=== PATIENT | male | born 1940 | race Caucasian/White ===

== ENCOUNTER 2017-03-08 11:09 | Emergency (ER) | payer MEDICARE ==
[~2017-03-08] VITALS: Ht 188 cm; Wt 93.0 kg
[~2017-03-08 11:09] MED LIST: AMLO5TAB96 PO; ASPI325T PO; ATOR10 PO; DIAZ5 PO; FLUO-1 PO; avadart
[2017-03-08 11:14] VITALS: BP 129/73; PULSE 106; RESP 16; TEMP 97.8; O2SAT 95
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
[2017-03-08] MEDS ORDERED: MULT1TAB46 PO (11:34)
[2017-03-08] MEDS ORDERED: DIAZ5TAB PO (11:34)
[2017-03-08] MEDS ORDERED: ASPI81CH6 CHEW (11:34)
[2017-03-08] MEDS ORDERED: AREDS PO (11:34)
--- NOTE | 2017-03-08 11:38 | RADRPT ---
EXAM DATE/TIME: 03/08/2017 11:23 [facility] COMPARISON: No previous studies available for comparison. INDICATIONS : Right hand second digit pain after landing on right hand. MEDICAL HISTORY : Hypercholesterolemia. Hypertension Benign testicular tumor. SURGICAL HISTORY : TURP. ENCOUNTER: Initial ACUITY: 1 day PAIN SCORE: 0/10 LOCATION: Right hand ssecond digit. FINDINGS: Ulnar dorsal dislocation at the second PIP joint. There is likely a small avulsion fracture along the proximal palmar region of the middle phalanx. Soft tissue swelling noted in the second digit. CONCLUSION: 1. Ulnar dorsal dislocation at the second PIP joint with small evulsion fracture along the proximal p almar region of the middle phalanx. Ousmane Owen MD on March 08, 2017 at 11:33 Board Certified Radiologist. This report was verified electronically.
--- NOTE | 2017-03-08 12:43 | RADRPT ---
EXAM DATE/TIME: 03/08/2017 12:14 [facility] COMPARISON: FINGER RIGHT 2ND DIGIT ([id number]), March 08, 2017, 11:23. INDICATIONS : Post reduction of right second digit. MEDICAL HISTORY : Hypercholesterolemia. Hypertension Benign testicular tumor. SURGICAL HISTORY : TURP. ENCOUNTER: Subsequent ACUITY: 1 day PAIN SCORE: 0/10 LOCATION: Right hand second digit. FINDINGS: Examination of the second digit of the right hand demonstrates interval reduction of the previously d escribed PIP dislocation. There is anatomic alignment. Small osseous fragment noted along the dorsum of the proximal middle phalanx is not demonstrated. No additional fractures identified. CONCLUSION: 1. Near-anatomic alignment following reduction of second PIP dislocation. 2. Small osseous fragment noted along the dorsum of the proximal second middle phalanx is no longer v isualized. Otherwise, no acute fracture. Ousmane Owen MD on March 08, 2017 at 12:38 Board Certified Radiologist. This report was verified electronically.
[2017-03-10] MEDS ORDERED: FLUO-1 PO (10:49)
[2017-03-10] MEDS ORDERED: AVOD0.5C PO (10:49)
[2017-03-10] MEDS ORDERED: AMLO5 PO (10:49)
[2017-03-10] MEDS ORDERED: LIPI10TA PO (10:49)
[2017-03-10] MEDS ORDERED: OCUVTAB4 PO (10:49)
== END 2017-03-08 12:31 | disposition home or self-care (01) ==
LOC: PHEFT 11:09
DX: S63.280A Dislocation of proximal interphalangeal joint of right index finger, initial encounter (principal); F41.9 Anxiety disorder, unspecified; F32.9 Major depressive disorder, single episode, unspecified; E78.00 Pure hypercholesterolemia, unspecified; I10 Essential (primary) hypertension; V18.4XXA Pedal cycle driver injured in noncollision transport accident in traffic accident, initial encounter; Z79.82 Long term (current) use of aspirin; Z79.899 Other long term (current) drug therapy; Z88.5 Allergy status to narcotic agent
CPT/HCPCS: 26770; 73140

== ENCOUNTER 2018-03-19 04:23 | Observation (INO) ==
--- NOTE | 2018-03-19 05:16 | ED ---
HPI General Chief Complaint: Seizure Stated Complaint: Poss seizures Time Seen by Provider: 03/19/18 05:06 Related Data Home Medications Medication Instructions Recorded Confirmed aflibercept 2 mg INTRAVITREAL Q8W 03/19/18 03/19/18 amlodipine 5 mg PO DAILY 03/19/18 03/19/18 aspirin [Aspir-81] 81 mg PO DAILY 03/19/18 03/19/18 atorvastatin 10 mg PO DAILY 03/19/18 03/19/18 diazepam 5 mg PO DAILY 03/19/18 03/19/18 dutasteride 0.5 mg PO DAILY 03/19/18 03/19/18 fluoxetine 10 mg PO HS 03/19/18 03/19/18 fluoxetine 40 mg PO DAILY 03/19/18 03/19/18 lutein 6 mg PO DAILY 03/19/18 03/19/18 magnesium 250 mg PO DAILY 03/19/18 03/19/18 multivitamin 1 cap PO QAM 03/19/18 03/19/18 Allergies Allergy/AdvReac Type Severity Reaction Status Date / Time codeine AdvReac Severe HEADACHE/NAUSEA Verified 03/19/18 04:25 AND VOMITING PMFSH Medical History Medical History Anxiety (Acute) BPH (benign prostatic hyperplasia) (Acute) Depression (Acute) HTN (hypertension) (Acute) Hypercholesteremia (Acute) Macular degeneration (Acute) Surgical History Surgical History H/O transurethral resection of prostate (Acute) History of eye surgery (Acute) History of testicular surgery (Acute) Social History Social History Substance History: No History of Abuse Second Hand Smoke Exposure: No Smoking Status: Never smoker How Often Do You Have a Drink Containing Alcohol: Monthly or less Recent Travel in [facility] within the Last 8 Weeks: No Recent Out of Country Travel within the Last 8 Weeks: No Immunization History Tetanus Immunization: <5 Years Course Initial Documented Vital Signs Temperature 97.7 F 03/19/18 04:25 Pulse Rate 90 03/19/18 04:25 Respiratory Rate 20 03/19/18 04:25 Blood Pressure 196/97 H 03/19/18 04:25 Pulse Oximetry 98 03/19/18 04:25 Last Documented Vital Signs Temperature 97.7 F 03/19/18 04:25 Pulse Rate 68 03/19/18 12:27 Respiratory Rate 18 03/19/18 12:27 Blood Pressure 158/83 H 03/19/18 12:27 Pulse Oximetry 96 03/19/18 12:27 Sign Out Sign Out Data: Patient Sign Out occurred on 03/19/18 at 06:14. Patient's care was discussed, and care was transferred from Anny Polanco MD to Akira Marin MD. Sign Out Comment: recently seen in the emergency department 03/17/18 diagnosed with anxiety however symptoms seem to be escalatingPatient with known anxiety depression recent adjustment of his medications now having episodes of tremor and muscle spasm and with taking increasing doses of Valium symptoms have not been resolving CT brain noncontrast ordered along with basic labs as well as CK to evaluate for rhabdomyolysis dehydration. Last updated by Anny Polanco MD at 03/19/18 05:54 Post-Handoff Eval: The patient is a 77-year-old male who was initially evaluated by the previous physician, Dr. Polanco. The patient has been on Prozac 40 mg continuously for several years, recently was increased to Prozac 40 mg in the morning and 10 mg at night. The patient was then tapered off of the Valium, however, had increasing symptoms of insomnia, restlessness, tremors, and anxiety. The patient was evaluated in the emergency department several days ago and was placed back on the Valium, 2.5 mg daily. The patient stated his symptoms progressed and he called his psychiatrist, Dr. Bernal, who referred him to the emergency department. The patient is followed by his primary physician, Dr. Leavitt, and his neurologist, Dr. Grant. The patient notes increasing fasciculations and tremors the lower extremities. On physical examination the patient was noted to be hyperreflexic in the lower extremities with obvious muscle fasciculations. The patient states he has had a previous MRI of the cervical spine, thoracic spine, and lumbar spine which revealed degenerative changes but no other significant disease. He is also had previous nerve conduction velocity test and EMG of the lower extremities for peripheral neuropathy. However, the fasciculations and hyperreflexia are new. The patient is afebrile, but does have an elevated blood pressure, CPK was normal. Differential diagnosis includes neuroleptic malignant syndrome versus other underlying neurologic disorder. Therefore, the patient will be admitted for neurology evaluation. The patient's primary physician is Dr. Leavitt, therefore , [facility] I discussed the patient with Dr. Caputo who agrees with admission. I discussed the patient with Dr. Simons, the patient's psychiatrist. He would like a call from the neurologist to evaluate the patient if possible. He also recommends continuing the Valium but hold the Prozac. Medical Decision Making MDM Narrative Medical Screen Exam Complete: Yes Emergency Medical Condition: Yes Lab Data Result diagrams: 03/19/18 05:30 03/19/18 05:30 Lab Results 03/19/18 03/19/18 03/19/18 Range/Units 05:30 05:30 05:30 WBC 6.1 (4.0-11.0) th/mm3 RBC 4.79 (4.50-5.90) mil/mm3 Hgb 15.2 (13.0-17.0) gm/dL Hct 44.2 (39.0-51.0) % MCV 92.1 (80.0-100.0) fL MCH 31.8 (27.0-34.0) pg MCHC 34.5 (32.0-36.0) % RDW 13.4 (11.6-17.2) % Plt Count 212 (150-450) th/mm3 MPV 7.9 (7.0-11.0) fL Neut % (Auto) 67.4 (16.0-70.0) % Lymph % (Auto) 25.1 (9.0-44.0) % Hyde % (Auto) 6.5 (0.0-8.0) % Eos % (Auto) 0.4 (0.0-4.0) % Baso % (Auto) 0.6 (0.0-2.0) % Neut # (Auto) 4.1 (1.8-7.7) th/mm3 Lymph # (Auto) 1.5 (1.0-4.8) th/mm3 Hyde # (Auto) 0.4 (0.0-0.9) th/mm3 Eos # (Auto) 0.0 (0.0-0.4) th/mm3 Baso # (Auto) 0.0 (0.0-0.2) th/mm3 WBC Differential . Differential Comment Auto diff final Sodium 140 (136-145) meq/L Potassium 3.6 (3.5-5.1) meq/L Chloride 102 (98-107) meq/L Carbon Dioxide 29.8 (21.0-32.0) meq/L Anion Gap 8 (5-15) meq/L BUN 15 (7-18) mg/dL Creatinine 1.14 (0.60-1.30) mg/dL Estimated GFR 62 L (>89) mL/min Random Glucose 107 H (74-106) mg/dL Calcium 9.2 (8.5-10.1) mg/dL Magnesium 2.4 (1.5-2.5) mg/dL Total Bilirubin 0.8 (0.2-1.0) mg/dL AST 20 (15-37) U/L ALT 25 (12-78) U/L Alkaline Phosphatase 61 (45-117) U/L Total Creatine Kinase 205 (39-308) U/L CK-MB (CK-2) 2.7 (0.5-3.6) ng/mL Troponin I Less than 0.02 L (0.02-0.05) ng/mL Total Protein 7.6 (6.4-8.2) g/dL Albumin 4.1 (3.4-5.0) g/dL TSH (0.358-3.740) uIU/mL Free T4 (0.76-1.46) ng/dL Free T3 (2.18-3.98) pg/mL 03/19/18 Range/Units 05:30 WBC (4.0-11.0) th/mm3 RBC (4.50-5.90) mil/mm3 Hgb (13.0-17.0) gm/dL Hct (39.0-51.0) % MCV (80.0-100.0) fL MCH (27.0-34.0) pg MCHC (32.0-36.0) % RDW (11.6-17.2) % Plt Count (150-450) th/mm3 MPV (7.0-11.0) fL Neut % (Auto) (16.0-70.0) % Lymph % (Auto) (9.0-44.0) % Hyde % (Auto) (0.0-8.0) % Eos % (Auto) (0.0-4.0) % Baso % (Auto) (0.0-2.0) % Neut # (Auto) (1.8-7.7) th/mm3 Lymph # (Auto) (1.0-4.8) th/mm3 Hyde # (Auto) (0.0-0.9) th/mm3 Eos # (Auto) (0.0-0.4) th/mm3 Baso # (Auto) (0.0-0.2) th/mm3 WBC Differential Differential Comment Sodium (136-145) meq/L Potassium (3.5-5.1) meq/L Chloride (98-107) meq/L Carbon Dioxide (21.0-32.0) meq/L Anion Gap (5-15) meq/L BUN (7-18) mg/dL Creatinine (0.60-1.30) mg/dL Estimated GFR (>89) mL/min Random Glucose (74-106) mg/dL Calcium (8.5-10.1) mg/dL Magnesium (1.5-2.5) mg/dL Total Bilirubin (0.2-1.0) mg/dL AST (15-37) U/L ALT (12-78) U/L Alkaline Phosphatase (45-117) U/L Total Creatine Kinase (39-308) U/L CK-MB (CK-2) (0.5-3.6) ng/mL Troponin I (0.02-0.05) ng/mL Total Protein (6.4-8.2) g/dL Albumin (3.4-5.0) g/dL TSH 2.110 (0.358-3.740) uIU/mL Free T4 1.55 H (0.76-1.46) ng/dL Free T3 3.30 (2.18-3.98) pg/mL Imaging Data Radiologist's impression: Head CT 03/19/18 05:06 CONCLUSION: No acute intracranial abnormality is seen. . Discharge Plan Discharge Disposition Patient Disposition: ED Admit(ED Internal Use Only) Discharge Condition Condition: Stable Discharge Order Discharge Orders: ED Use Only Admit Order (Routine); Ordered 03/19/18 Ordered By: Akira Marin Discharge Details Diagnosis: Fasciculations, Hyperreflexia Physicians Team ED Provider: Akira Marin Primary Care Provider: UNKNOWN, Attending Provider: Mame Caputo Other Providers: [facility],Insurance ; Gilson Dias Status ED Status: Admitted Observation Patient
--- NOTE | 2018-03-19 05:28 | CT ---
EXAM DATE: 03/19/2018 5:24 AM EST AGE/SEX: 77 years / Male INDICATIONS: Altered Mental Status, Headaches, Tremors CLINICAL DATA: This is the patient's initial encounter. Patient reports that signs and symptoms have been present for 1 day and indicates a pain score of 10/10. MEDICAL/SURGICAL HISTORY: Hypertension. None. RADIATION DOSE: 56.39 CTDI (mGy) COMPARISON: No prior exams available for comparison. TECHNIQUE: CT of the head without contrast. Using automated exposure control and adjustment of the mA and/or kV according to patient size, radiation dose was kept as low as reasonably achievable to ob tain optimal diagnostic quality images. DICOM format image data is available electronically for revi ew and comparison. FINDINGS: Cerebrum: The ventricles are normal for age. No evidence of midline shift, mass lesion, hemorrhage or acute infarction. No extraaxial fluid collections are seen. Posterior Fossa: The cerebellum and brainstem are intact. The 4th ventricle is midline. The cerebe llopontine angle is unremarkable. Extracranial: The visualized portion of the orbits is intact. Skull: The calvaria is intact. No evidence of skull fracture. There is chronic appearing sclerosis at the inferior left mastoid bone. CONCLUSION: No acute intracranial abnormality is seen. . Electronically signed by: Shailesh Coyne MD Board Certified Radiologist 03/19/2018 5:26 AM EST
[2018-03-19] MEDS: Sod Chloride 0.9% Inj 1,000 ML IV.CONT SCH ×3 (05:45→17:38)
[2018-03-19 06:22] LABS: Baso % (Auto) 0.6 % (0.0-2.0); Eos % (Auto) 0.4 % (0.0-4.0); Hematocrit 44.2 % (39.0-51.0); Hemoglobin 15.2 gm/dL (13.0-17.0); Lymph # (Auto) 1.5 th/mm3 (1.0-4.8); Lymph % (Auto) 25.1 % (9.0-44.0); Mean Corpuscular HGB Conc 34.5 % (32.0-36.0); Mean Corpuscular Hemoglobin 31.8 pg (27.0-34.0); Mean Corpuscular Volume 92.1 fL (80.0-100.0); Mean Platelet Volume 7.9 fL (7.0-11.0); Mono # (Auto) 0.4 th/mm3 (0.0-0.9); Mono % (Auto) 6.5 % (0.0-8.0); Neut # (Auto) 4.1 th/mm3 (1.8-7.7); Neut % (Auto) 67.4 % (16.0-70.0); Platelet Count 212 th/mm3 (150-450); Red Blood Count 4.79 mil/mm3 (4.50-5.90); Red Cell Distribution Width 13.4 % (11.6-17.2); White Blood Count 6.1 th/mm3 (4.0-11.0)
[2018-03-19 06:34] LABS: Alanine Aminotransferase 25 U/L (12-78); Albumin 4.1 g/dL (3.4-5.0); Anion Gap 8 meq/L (5-15); Aspartate Aminotransferase 20 U/L (15-37); Blood Urea Nitrogen 15 mg/dL (7-18); Calcium 9.2 mg/dL (8.5-10.1); Carbon Dioxide 29.8 meq/L (21.0-32.0); Chloride 102 meq/L (98-107); Glomerular Filtration Rate 62 mL/min (>89); Glucose,Random 107 mg/dL (74-106); Magnesium 2.4 mg/dL (1.5-2.5); Potassium 3.6 meq/L (3.5-5.1); Sodium 140 meq/L (136-145)
[2018-03-19 06:36] LABS: Alkaline Phosphatase 61 U/L (45-117); Creatine Kinase 205 U/L (39-308); Total Protein 7.6 g/dL (6.4-8.2)
[2018-03-19 06:56] LABS: Creatine Kinase MB 2.7 ng/mL (0.5-3.6)
[2018-03-19] MEDS ORDERED: amLODIPine 5 MG Tablet PO ONE ×2 (06:59→12:10)
[2018-03-19 07:19] LABS: Free T4 (Free Thyroxine) 1.55 ng/dL (0.76-1.46); Thyroid Stimulating Hormone 2.11 uIU/mL (0.358-3.740); Triiodothyronine (T3) Free 3.3 pg/mL (2.18-3.98)
--- NOTE | 2018-03-19 09:36 | ECG ---
Date Performed: 03/19/2018 Time Performed: 05:38:01 PTAGE: 77 years EKG: Sinus rhythm BORDERLINE LEFT AXIS DEVIATION NONSPECIFIC T-WAVE ABNORMALITY BORDERLINE ECG INTERPRETATION BASED ON A DEFAULT AGE OF 40 YEARS NO PREVIOUS TRACING DOCTOR: Arturo Mello Interpretating Date/Time 03/19/2018 09:36:05
--- NOTE | 2018-03-19 11:52 | P.HPIM ---
History of Present Illness Primary Care Physician: UNKNOWN History of Present Illness: This patient is a 77 y/o male with a Dx of anxiety and depression for 10 yrs. He also has htn. The patient follows up with his primary care doctor and neurologist Dr. Grant. Patient presents to the ED with tremors and hyper reflexia primarily in his lower extremities. He says the symptoms have been getting worse over the past few days and he was seen in [place] for similar symptoms on the Feb. He denies any bladder or bowel incontinence but says he has a sensation of tingling occasionally in his legs that moves towards his genitals. He has not been able to sleep because of persistent symptoms. His symptoms were severe this morning so he came into the ED for evaluation. He denies any fever or chills. No chest pain, no sob. No other complaints. Fam hx Parkinsons in his mother Review of Systems All other systems reviewed negative except as stated in HPI [facility] - History History Provided By: Patient, Significant Other - Medical History Medical History: Medical History (Last Updated 03/19/18 @ 04:31 by Yojana Haro) Anxiety BPH (benign prostatic hyperplasia) Depression HTN (hypertension) Hypercholesteremia Macular degeneration - Surgical History Surgical History: Surgical History (Last Updated 03/19/18 @ 04:31 by Yojana Haro) H/O transurethral resection of prostate History of eye surgery History of testicular surgery - Tobacco History Second Hand Smoke Exposure: No Tobacco Use In Past 30 Days: No Smoking Status: Never smoker - Alcohol History How Often Do You Have a Drink Containing Alcohol: Monthly or less - Substance Use History Substance History: No History of Abuse - Travel History Recent Travel in the [facility] Within the Last 8 Weeks: No Recent Travel Out of the Country Within the Last 8 Weeks: No - Immunization History Tetanus Immunization: <5 Years Medications and Allergies Active Medications: Active Medications Amlodipine Besylate (Norvasc) 5 mg PO DAILY [facility] Amlodipine Besylate (Norvasc) 5 mg PO ONCE ONE Stop: 03/19/18 11:40 Aspirin (Aspirin Chew) 81 mg PO DAILY [facility] Atorvastatin Calcium (Lipitor) 10 mg PO HS [facility] Diazepam (Valium) 5 mg PO DAILY [facility] Fluoxetine HCl (Prozac) 40 mg PO HS [facility] Sodium Chloride (Ns Inj) 1,000 mls @ 100 mls/hr IV.CONT .Q10H [facility] Last Admin: 03/19/18 05:45 Dose: 100 mls/hr Multivitamins (Theragran) 1 tab PO DAILY [facility] Sodium Chloride (Ns Flush) 2 ml IV.FLUSH PRN PRN PRN Reason: FLUSH AFTER USING IV ACCESS Allergies Allergy/AdvReac Type Severity Reaction Status Date / Time codeine AdvReac Severe HEADACHE/NAUSEA Verified 03/19/18 04:25 AND VOMITING Home Medications Medication Instructions Recorded Confirmed Type aflibercept 2 mg INTRAVITREAL Q8W 03/19/18 03/19/18 History amlodipine 5 mg PO DAILY 03/19/18 03/19/18 History aspirin [Aspir-81] 81 mg PO DAILY 03/19/18 03/19/18 History atorvastatin 10 mg PO DAILY 03/19/18 03/19/18 History diazepam 5 mg PO DAILY 03/19/18 03/19/18 History dutasteride 0.5 mg PO DAILY 03/19/18 03/19/18 History fluoxetine 10 mg PO HS 03/19/18 03/19/18 History fluoxetine 40 mg PO DAILY 03/19/18 03/19/18 History lutein 6 mg PO DAILY 03/19/18 03/19/18 History magnesium 250 mg PO DAILY 03/19/18 03/19/18 History multivitamin 1 cap PO QAM 03/19/18 03/19/18 History Exam Vital signs: Vital Signs 03/19/18 04:25 03/19/18 05:50 03/19/18 07:29 Temperature 97.7 F Pulse Rate 90 69 74 Respiratory Rate 20 17 Blood Pressure 196/97 H 188/84 H 192/92 H Pulse Oximetry 98 96 97 03/19/18 08:32 03/19/18 10:48 Temperature Pulse Rate 79 Respiratory Rate 18 Blood Pressure 173/81 H 169/79 H Pulse Oximetry 95 Intake & Output 03/18/18 03/19/18 03/19/18 18:59 06:59 18:59 Weight 90.718 kg Narrative: alert and oriented x 3, appears anxious S1S2 CTA b/l abd soft, normal bowel sounds exts no edema CN are intact, patient has tremors which is obvious on examination, hyper reflexes in the knees and ankles. complains of tingling in the lower exts which occasionally travels up to his genitals. Patient moves all 4 exts and sensation is intact b/l Results - Labs CBC & Chem 7: 03/19/18 05:30 03/19/18 05:30 Labs: Short CBC 03/19/18 Range/Units 05:30 WBC 6.1 (4.0-11.0) th/mm3 Hgb 15.2 (13.0-17.0) gm/dL Hct 44.2 (39.0-51.0) % Plt Count 212 (150-450) th/mm3 BMP 03/19/18 05:30 Sodium 140 Potassium 3.6 Chloride 102 Carbon Dioxide 29.8 BUN 15 Creatinine 1.14 Calcium 9.2 Cardiac Enzymes 03/19/18 03/19/18 Range/Units 05:30 05:30 Total Creatine Kinase 205 (39-308) U/L CK-MB (CK-2) 2.7 (0.5-3.6) ng/mL Troponin I Less than 0.02 L (0.02-0.05) ng/mL Liver Function 03/19/18 Range/Units 05:30 Total Bilirubin 0.8 (0.2-1.0) mg/dL AST 20 (15-37) U/L ALT 25 (12-78) U/L Alkaline Phosphatase 61 (45-117) U/L Albumin 4.1 (3.4-5.0) g/dL - Imaging Impressions Head CT 03/19/18 05:06 CONCLUSION: No acute intracranial abnormality is seen. . Caprini VTE Risk Assessment Caprini VTE Risk Assessment: Moderate/High Risk (score >= 2) Caprini Risk Assessment Model: Point Value = 1 Point Value = 2 Point Value = 3 Point Value = 5 Age 41-60 Minor surgery BMI > 25 kg/m2 Swollen legs Varicose veins or History of unexplained or recurrent spontaneous Oral contraceptives or hormone replacement Sepsis (< 1 month) Serious lung disease, including pneumonia (< 1 month) Abnormal pulmonary function Acute myocardial infarction Congestive heart failure (< 1 month) History of inflammatory bowel disease Medical patient at bed rest Age 61-74 Arthroscopic surgery Major open surgery (> 45 min) Laparoscopic surgery (> 45 min) Malignancy Confined to bed (> 72 hours) Immobilizing plaster cast Central venous access Age >= 75 History of VTE Family history of VTE Factor V Leiden Prothrombin [id number] Lupus anticoagulant Anticardiolipin antibodies Elevated serum homocysteine Heparin-induced thrombocytopenia Other congenital or acquired thrombophilia Stroke (< 1 month) Elective arthroplasty Hip, pelvis, or leg fracture Acute spinal cord injury (< 1 month) Prophylaxis Regimen: Total Risk Factor Score Risk Level Prophylaxis Regimen 0-1 Low Early ambulation 2 Moderate Order ONE of the following: *Sequential Compression Device (SCD) *Heparin 5000 units SQ BID 3-4 Higher Order ONE of the following medications: *Heparin 5000 units SQ TID *Enoxaparin/Lovenox 40 mg SQ daily (WT < 150 kg, CrCl > 30 mL/min) *Enoxaparin/Lovenox 30 mg SQ daily (WT < 150 kg, CrCl > 10-29 mL/min) *Enoxaparin/Lovenox 30 mg SQ BID (WT < 150 kg, CrCl > 30 mL/min) AND/OR *Sequential Compression Device (SCD) 5 or more Highest Order ONE of the following medications: *Heparin 5000 units SQ TID (Preferred with Epidurals) *Enoxaparin/Lovenox 40 mg SQ daily (WT < 150 kg, CrCl > 30 mL/min) *Enoxaparin/Lovenox 30 mg SQ daily (WT < 150 kg, CrCl > 10-29 mL/min) *Enoxaparin/Lovenox 30 mg SQ BID (WT < 150 kg, CrCl > 30 mL/min) AND *Sequential Compression Device (SCD) Assessment and Plan - Plan This patient is a 77 y/o male with a Dx of anxiety and depression for 10 yrs. He also has htn. The patient follows up with his primary care doctor and neurologist Dr. Grant. Patient presents to the ED with tremors and hyper reflexia primarily in his lower extremities. He says the symptoms have been getting worse over the past few days and he was seen in [place] for similar symptoms on the Feb. He denies any bladder or bowel incontinence but says he has a sensation of tingling occasionally in his legs that moves towards his genitals. His symptoms were severe this morning so he came into the ED for evaluation. He was advised by his pcp to increase the frequency of valium however was not improved. 1. Tremors likely poorly controlled anxiety. Patient presented with the symptoms mentioned above. CT head done which is negative. As per patient an mri of the c t and l spine were done which was negative. He takes valium at home which he says is no longer helping him. I spoke to the ed physician who was concerned given the pts persistent symptoms and hyper reflexia. I will consult neurology to evaluate the patient and would appreciate their recommendations. If the patient's symptoms are not neurological then the patient will need to continue to follow up with his psychiatrist given his dx of depression and anxiety. Patient has no suicidal ideation. 2. HTN Continue norvasc, dose increased. 3. Depression Continue fluoxetine. lovenox for dvt prophylaxis.
[2018-03-19] MEDS: Lisinopril 5 MG Tablet PO SCH (17:56)
--- NOTE | 2018-03-19 18:44 | MB ---
cc: Gilson Beach MD DATE: 03/19/2018 HISTORY OF PRESENT ILLNESS: This is a 77-year-old right-handed man with anxiety, depression, hypertension, hypercholesterolemia. He has had what was diagnosed as neuropathy and numbness in his feet and recently some vibratory-type feeling where his legs feel like they will vibrate up into his anus. He has some tremors of his hands at times. Evidently, he had an MRI of his low back and his cervical spine, which he tells me were negative at [facility]. He was somewhat agitated mentally and came in the hospital today. He has felt like his walking has been off recently. His says he seemed to be shuffling or had a very wide-based gait recently. Recently, he has noticed some fasciculations in his legs and his Prozac evidently was increased recently. He saw Dr. Simons, had told him to go back down to his prior dose. SOCIAL HISTORY: Not a smoker or drinker, lives with his . FAMILY HISTORY: Negative for cancer, seizure, stroke. Positive for Parkinson disease in his mother. REVIEW OF SYSTEMS: He denies any diabetes, [place], stent, angioplasty, CABG, AFib, Coumadin, renal, hepatic or pulmonary disease, thyroid disease, lupus, ulcer, cancer, seizure or stroke. PAST MEDICAL HISTORY: As above, also some macular degeneration. MEDICATIONS AT HOME: 1. He is on some eyedrops. 2. Magnesium. 3. Lutein. 4. Aspirin 81 mg. 5. Multivitamin. 6. Prozac 10 at night. 7. Valium 5 a day. 8. Fluoxetine 40 a day and 10 at night. 9. Dutasteride. 10. Atorvastatin. 11. Amlodipine. PHYSICAL EXAMINATION: VITAL SIGNS: 196/97-158/83, 18, 78, afebrile. NECK: There were no carotid bruits. HEART: Regular rate and rhythm. I do not detect a murmur. NEUROLOGIC: Pupils are equal. Discs I could not see well. Visual gu are full. Extraocular movements intact without nystagmus. Face is symmetric with normal sensation. Tongue was midline. There is no drift. Normal strength in upper and lower extremities bilaterally. DTRs are 3+ symmetric at the knees, 1+ symmetric at the upper extremities. There is no ankle clonus. Tone was normal throughout. Dorsalis pedis pulse was normal on the left foot. Pinprick was intact in the feet, as was proprioception in the hands, the face, and the occiput bilaterally. There was no pain level on his back. He is intact on [id number]. He has normal gait with normal tandem and negative Romberg. Minimal tremor today with extension of his hands. He has got some fasciculations I note in his legs bilaterally, mostly in the proximal legs today at rest at times. LABORATORY DATA: His CBC was normal. BMP normal, LFTs, normal CPK, normal troponin, TSH all essentially unremarkable. IMPRESSION: 1. Some hypertension. I would control that. 2. I thought overall he looked well, but his reflexes are little bit brisk in the lower extremities. He had a recent MRI of his cervical spine and lumbar spine, which he was told was normal at [facility]. We will try to obtain those reports and check an MRI of his thoracic spine. I can check some additional blood work on him and I will see him as an outpatient for the fasciculations, most of which are benign, however. I note he had good strength in the intrinsic muscles of his hands today. He could also consider switching off of the fluoxetine. Zoloft could be considered or Lexapro, which might make him more relaxed. At this point, we will just cut his Prozac down to 40 mg a day. His psychiatrist is worried about serotonin syndrome on him. With the tremors, we can check an MRI of the brain. Overall, I thought he looked well neurologically for the most. MD SERGIO Allen/christophe , 05:37 PM , 05:45 PM
[2018-03-19 18:57] LABS: Bilirubin,Urine Negative (Negative); Clarity,Urine Clear (Clear); Color,Urine Straw (Yellw/Straw); Glucose,Urine (UA) Negative (Negative); Leukocyte Esterase,Urine Negative (Negative); Mucus,Urine Few /lpf (Occasional); Nitrite,Urine Negative (Negative); Specific Gravity,Urine 1.008 (1.002-1.035)
[2018-03-19 19:00] LABS: Amphetamine Screen,Urine Neg (Neg); Barbiturate Screen,Urine Neg (Neg); Cannabinoid Screen,Urine Neg (Neg); Cocaine Screen,Urine Neg (Neg)
[2018-03-19 19:07] LABS: Opiate Screen,Urine Neg (Neg)
[2018-03-19] MEDS ORDERED: FLUoxetine 20 MG Capsule PO SCH ×2 (21:00→21:05)
[2018-03-19 21:29] LABS: Vitamin B12 1559 pg/mL (193-986)
[2018-03-20] MEDS: Sod Chloride 0.9% Inj 1,000 ML IV.CONT SCH ×2 (03:06→11:27)
--- NOTE | 2018-03-20 07:10 | P.PNNEU ---
Subjective Active Medications: Active Medications Amlodipine Besylate (Norvasc) 10 mg PO DAILY [facility] Aspirin (Aspirin Chew) 81 mg PO DAILY [facility] Atorvastatin Calcium (Lipitor) 10 mg PO HS [facility] Last Admin: 03/19/18 21:32 Dose: 10 mg Diazepam (Valium) 5 mg PO DAILY [facility] Enoxaparin Sodium (Lovenox Inj) 40 mg SQ DAILY [facility] Fluoxetine HCl (Prozac) 20 mg PO HS [facility] Last Admin: 03/19/18 21:32 Dose: 20 mg Sodium Chloride (Ns Inj) 1,000 mls @ 100 mls/hr IV.CONT .Q10H [facility] Last Admin: 03/20/18 03:06 Dose: 100 mls/hr Lisinopril (Prinivil) 5 mg PO DAILY [facility] Last Admin: 03/19/18 17:56 Dose: 5 mg Lorazepam (Ativan Inj) 1 mg IV.PUSH Q4H PRN PRN Reason: ANXIETY AND/OR AGITATION Last Admin: 03/20/18 03:06 Dose: 1 mg Multivitamins (Theragran) 1 tab PO DAILY [facility] Sodium Chloride (Ns Flush) 2 ml IV.FLUSH PRN PRN PRN Reason: FLUSH AFTER USING IV ACCESS Allergies/Adverse Reactions: Allergies Allergy/AdvReac Type Severity Reaction Status Date / Time codeine AdvReac Severe HEADACHE/NAUSEA Verified 03/19/18 04:25 AND VOMITING Physical Exam Vital signs: Vital Signs 03/19/18 07:29 03/19/18 08:32 03/19/18 10:48 Temperature Pulse Rate 74 79 Respiratory Rate 17 18 Blood Pressure 192/92 H 173/81 H 169/79 H Pulse Oximetry 97 95 03/19/18 12:27 03/19/18 15:33 03/19/18 20:00 Temperature 98.3 F 98.4 F Pulse Rate 68 78 67 Respiratory Rate 18 18 20 Blood Pressure 158/83 H 175/84 H 160/85 H Pulse Oximetry 96 95 95 03/20/18 00:00 03/20/18 04:00 Temperature 97.7 F 98.0 F Pulse Rate 78 86 Respiratory Rate 20 20 Blood Pressure 148/90 H 144/89 H Pulse Oximetry 96 97 Intake & Output 03/19/18 03/20/18 03/20/18 18:59 06:59 18:59 Intake Total 1500 / 1500 1000 / 1000 Balance 1500 / 1500 1000 / 1000 Weight 90.718 kg Intake: IV 1000 / 1000 1000 / 1000 NS Inj 1,000 ML @ 100 mls/hr IV 1000 / 1000 1000 / 1000 .CONT .Q10H [facility] Rx#:[id number] Oral 500 / 500 Other: # Voids 2 Date of Last Bowel Movement 03/18/18 03/18/18 Weight On Admission 90.718 kg Narrative: slept well after ativan no tremor now gait nl now Objective Laboratory Results - last 24 hr 03/19/18 03/19/18 03/19/18 05:30 18:09 18:09 ESR Ammonia Vitamin B12 Folate TSH 2.110 Free T4 1.55 H Free T3 3.30 Urine Color Straw Urine Clarity Clear Urine pH 7.0 Ur Specific [place] 1.008 Urine Protein Negative Urine Glucose (UA) Negative Urine Ketones Trace H Urine Occult Blood Negative Urine Nitrate Negative Urine Bilirubin Negative Urine Urobilinogen Less than 2 Ur Leukocyte Esterase Negative Urine RBC Less than 1 Urine WBC Less than 1 Urine Mucus Few H Micro UA Comment Culture not ind Ur Microscopic Review Not Reportable Urine Culture Comments Culture not ind Urine Opiates Screen Neg Ur Barbiturates Screen Neg Ur Amphetamines Screen Neg U Benzodiazepines Scrn Pos H Urine Cocaine Screen Neg U Cannabinoids Screen Neg Rheumatoid Factor Scrn Rheumatoid Factor Titer 03/19/18 03/19/18 03/19/18 20:21 20:21 20:21 ESR 7 Ammonia 24 Vitamin B12 1559 H Folate Greater than 20.0 H TSH Free T4 Free T3 Urine Color Urine Clarity Urine pH Ur Specific [place] Urine Protein Urine Glucose (UA) Urine Ketones Urine Occult Blood Urine Nitrate Urine Bilirubin Urine Urobilinogen Ur Leukocyte Esterase Urine RBC Urine WBC Urine Mucus Micro UA Comment Ur Microscopic Review Urine Culture Comments Urine Opiates Screen Ur Barbiturates Screen Ur Amphetamines Screen U Benzodiazepines Scrn Urine Cocaine Screen U Cannabinoids Screen Rheumatoid Factor Scrn Negative Rheumatoid Factor Titer Not Reportable Review/Management - Review/Management Plan: imp if mri c and ls spine neg TL and mri brain and t spine her e ok can dc and fu psych he should and wants to hold prozac
[2018-03-20 08:01] VITALS: BP 143/80; PULSE 76; RESP 18; TEMP 97.5; O2SAT 96
--- NOTE | 2018-03-20 08:37 | P.PNIM ---
Subjective Interval history: Follow-up on patient with tremors. Patient seen and examined. Patient states his tremors are much improved. Patient reports he slept well after being given Ativan. He denies any new medical complaints or concerns. He denies any headache, dizziness or vision changes. Denies any chest pain or shortness of breath. He denies any nausea, vomiting or abdominal pain. Patient has been in contact with his outside psychiatrist who has told him to discontinue the Prozac. Physical Exam Vital signs: Last Vital Signs Temp 97.5 F L 03/20/18 08:00 Pulse 76 03/20/18 08:00 Resp 18 03/20/18 08:00 BP 143/80 H 03/20/18 08:00 Pulse Ox 96 03/20/18 08:00 Intake & Output 03/18/18 03/19/18 03/20/18 03/21/18 06:59 06:59 06:59 06:59 Intake Total 2500 / 2500 Balance 2500 / 2500 Weight 90.718 kg 90.718 kg Narrative: GENERAL: WDWN male patient, INAD. Awake and alert. Anxious appearing. Non-tremulous. SKIN: Warm and dry. HEENT: Atraumatic. Normocephalic. Pupils equal and round. No scleral icterus. No injection or drainage. No nasal bleeding or discharge. Mucous membranes pink and moist. NECK: Trachea midline. CARDIOVASCULAR: Regular rate and rhythm. RESPIRATORY: No accessory muscle use. Clear to auscultation. Breath sounds equal bilaterally. GASTROINTESTINAL: Abdomen soft, non-tender, nondistended. +BS. MUSCULOSKELETAL: Extremities without clubbing, cyanosis, or edema. No obvious deformities. NEUROLOGICAL: Awake and alert. No obvious cranial nerve deficits. Motor grossly within normal limits. Normal speech. PSYCHIATRIC: Anxious; insight and judgment normal. 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 Patient to follow-up with Dr. Beach at discharge. -Patient participated with physical therapy, no PT needs identified at discharge Hypertension, not well controlled -Continue patient on Norvasc, increase dose to 10mg daily -Clonidine as needed with parameters -Continue to monitor BP Depression Anxiety -Patient to follow-up with his psychiatrist at discharge DVT prophylaxis -Lovenox Discharge patient to home Condition on discharge: Improved Heart healthy Diet as tolerated Ad Nori activity Rx written: Norvasc Follow-up with primary care physician, Dr. Beach of neurology, psychiatrist Progress Note: Quality VTE Deep Vein Thrombosis/Pulmonary Embolism Present on Admission: No
[2018-03-20] MEDS ORDERED: Gadobutrol PF 10 MMOL/10 ML Vial (for RAD) IV.SIG ONE (08:48)
--- NOTE | 2018-03-20 08:55 | MR ---
EXAM DATE: 03/20/2018 8:35 AM EST AGE/SEX: 77 years / Male INDICATIONS: CVA. Hyperreflexia. CLINICAL DATA: This is the patient's subsequent encounter. Patient reports that signs and symptoms h ave been present for 2 days and indicates a pain score of 0/10. MEDICAL/SURGICAL HISTORY: Hypertension. . TURP. Right testicular surgery. Glaucoma surgery. COMPARISON: [facility] [place], CT HEAD W/O CONTRAST, 03/19/2018. . TECHNIQUE: Multiplanar, multisequence examination of the brain was performed without and with 9 ml Ga davist (gadobutrol) contrast as a single exam dose. FINDINGS: Cerebrum: The ventricles are normal for age. No evidence of midline shift, mass lesion, hemorrhage or acute infarction. No extraaxial fluid collections are seen. The pituitary gland and suprasellar cistern are normal in configuration. White Matter: There punctate areas of increased T2 signal in the periventricular and subcortical whi te matter most consistent with mild microvascular ischemic demyelinative change. No significant abnor mal T2 signal is identified. Posterior Fossa: The cerebellum and brainstem are intact. The 4th ventricle is midline. The cerebel lopontine angle is unremarkable. The cerebellar tonsils are normal in position. Diffusion Imaging: No focal areas of restricted diffusion are seen. No evidence of acute infarction . Extracranial: The visualized portions of the orbits and paranasal sinuses are unremarkable. Post Contrast: No abnormal areas of parenchymal or dural enhancement. No evidence of blood-brain ba rrier breakdown. CONCLUSION: 1. Mild microvascular ischemic demyelinative changes. 2. No acute cortical infarct identified. Electronically signed by: Davian Carrasquillo MD Board Certified Radiologist 03/20/2018 8:53 AM EST
--- NOTE | 2018-03-20 08:56 | MR ---
EXAM DATE: 03/20/2018 8:33 AM EST AGE/SEX: 77 years / Male INDICATIONS: Myelopathy. Hyperreflexia. CLINICAL DATA: This is the patient's subsequent encounter. Patient reports that signs and symptoms h ave been present for 2 days and indicates a pain score of 0/10. MEDICAL/SURGICAL HISTORY: Hypertension. . TURP. Right testicular surgery. Glaucoma surgery. COMPARISON: [facility], MR CERVICAL SPINE W/O CONTRAST, 02/03/2018. . TECHNIQUE: Multiplanar, multisequence MRI of the thoracic spine was performed without and with 9 ml Gadavist (gadobutrol) contrast as a single exam dose. FINDINGS: Vertebrae: Normal vertebral body height. Bone marrow signal is within normal limits. There is a T1 hyperintense lesion within the T9 and T10 vertebral body measuring 2.1 cm and 1.2 cm, respectively. F eatures are characteristic of hemangiomas. No concerning bone lesion is identified. A similar-appeari ng lesion is stable at L2. There are endplate osteophytes at multiple levels. Alignment: No anterolisthesis or retrolisthesis. Cord: Normal signal. T1-T2: No disc herniation, canal stenosis, or neural foraminal stenosis. T2-T3: No disc herniation, canal stenosis, or neural foraminal stenosis. T3-T4: No disc herniation, canal stenosis, or neural foraminal stenosis. T4-T5: No disc herniation, canal stenosis, or neural foraminal stenosis. T5-T6: No disc herniation, canal stenosis, or neural foraminal stenosis. T6-T7: No disc herniation, canal stenosis, or neural foraminal stenosis. T7-T8: No disc herniation, canal stenosis, or neural foraminal stenosis. T8-T9: No disc herniation, canal stenosis, or neural foraminal stenosis. T9-T10: No disc herniation, canal stenosis, or neural foraminal stenosis. T10-T11: No disc herniation, canal stenosis, or neural foraminal stenosis. T11-T12: No disc herniation, canal stenosis, or neural foraminal stenosis. T12-L1: No disc herniation, canal stenosis, or neural foraminal stenosis. Other: The visualized surrounding structures demonstrate no acute abnormality. CONCLUSION: 1. Multilevel degenerative disc disease. However, no significant spinal canal stenosis or neural for aminal narrowing is present. 2. The spinal cord has a normal appearance without focal signal abnormality. Electronically signed by: Shailesh Santacruz MD Board Certified Radiologist 03/20/2018 8:55 AM EST
[2018-03-20] MEDS ORDERED: amLODIPine 10 MG Tablet PO SCH (09:00)
[2018-03-20] MEDS ORDERED: Enoxaparin Inj 40 MG/0.4 ML Syringe SQ SCH (09:00)
[2018-03-20] MEDS ORDERED: diazePAM 5 MG Tablet PO SCH (09:00)
[2018-03-20] MEDS ORDERED: amLODIPine 5 MG Tablet PO SCH (09:00)
[2018-03-20] MEDS: Lisinopril 5 MG Tablet PO SCH (10:41)
[2018-03-20] MEDS ORDERED: FLUoxetine 20 MG Capsule PO SCH (21:00)
[2018-03-22 16:34] LABS: Methylmalonic Acid 0.09 nmol/mL (<=0.40)
== END 2018-03-20 11:36 | disposition home or self-care (01) ==
LOC: NEPE 04:23 → NEDA 04:23 → NEPFCDU 14:00
PROVIDERS: ADMIT Hospitalist; ATTEND Hospitalist
DX: Z79.82 Long term (current) use of aspirin; R29.2 Abnormal reflex; F32.9 Major depressive disorder, single episode, unspecified; H35.30 Unspecified macular degeneration; I10 Essential (primary) hypertension; D18.00 Hemangioma unspecified site; E78.00 Pure hypercholesterolemia, unspecified; Z82.0 Family history of epilepsy and other diseases of the nervous system; N40.0 Benign prostatic hyperplasia without lower urinary tract symptoms; G62.9 Polyneuropathy, unspecified; R94.31 Abnormal electrocardiogram [ECG] [EKG]; F41.9 Anxiety disorder, unspecified
CPT/HCPCS: 70450; 70553; 72157; 80053; 80307; 81001; 82140; 82550; 82552; 82607; 82746; 83735; 83918; 83921; 84425; 84439; 84443; 84481; 84484; 85025; 85651; 85652; 86038; 86430; 86431; 90761; 90774; 90784; 93005; 96361; 96374; 96376; 97161; 99285; A9585; C8952; G0378; G8987; G8988; G8989; J2060; J7030